=== PATIENT | female | born 1985 ===

== ENCOUNTER → 2017-07-01 | Outpatient (REF) | payer OTHER | LOC: M LAB REF 13:36 | PROVIDERS: ATTEND Physician Assistant | DX: T14.8XXA Other injury of unspecified body region, initial encounter (principal); Y92.89 Other specified places as the place of occurrence of the external cause ==

== ENCOUNTER → 2018-04-01 | Outpatient (REF) | payer OTHER | LOC: M LAB REF 12:52 | DX: J02.9 Acute pharyngitis, unspecified (principal) ==